=== PATIENT | male | born 1955 | race Caucasian/White ===

== ENCOUNTER 2022-02-14 11:45 | Emergency (ER) | payer OTHER ==
[~2022-02-14] VITALS: Ht 175.3 cm; Wt 95.3 kg
[2022-02-14] MEDS ORDERED: LOSARTAN POTAS100 MG PO (12:25)
[2022-02-14] MEDS ORDERED: AMLODIPINE BESYL5 MG PO (12:25)
== END 2022-02-14 15:20 | disposition home or self-care (01) ==
LOC: ER 11:45
DX: R04.0 Epistaxis (principal)